=== PATIENT | female | born 1980 | race Hispanic/Latino ===

== ENCOUNTER 2023-09-08 08:27 | Outpatient (CLI) | payer SELFPAY ==
[2023-09-08 09:19] LABS: #Basophils 0.04 10x3/uL (0.0-0.2); #Eosinphils 0.13 10x3/uL (0.0-0.5); #Monocytes 0.41 10x3/uL (0.0-1.1); #Neutrophils 3.53 10x3/uL (1.5-8.4); %Basophils 0.7 % (0.0-2.0); %Eosinophils 2.3 % (0.0-6.0); %Lymphocytes 27.9 % (18.0-47.0); %Monocytes 7.1 % (0.0-10.0); %Neutrophils 61.5 % (40.0-75.0); Hematocrit 41.2 % (34.9-44.5); Hemoglobin 13.7 g/dL (12.0-15.5); Mean Corpuscular HGB CONC 33.3 g/dL (32.0-36.0); Mean Corpuscular Hemoglobin 30.4 pg (27.0-33.0); Mean Corpuscular Volume 91.6 fl (81.6-98.3); Mean Platelet Volume 11.9 fl (7.4-10.4); Platelet Count 223 10x3/uL (150-450); RBC Distribution Width 12.4 % (11.5-14.5); White Blood Cell (WBC) Count 5.7 10x3/uL (3.5-10.5)
[2023-09-08 09:51] LABS: BHCG - Serum Negative (NEGATIVE); Pregs Control Background? CLEAR/WHITE (CLR/WHITE); Pregs Control Bar Appear? YES (CONTROL BAR)
== END 2023-09-08 08:28 | disposition home or self-care (01) ==
LOC: LABBT 08:27
PROVIDERS: ATTEND Orthopaedic Surgery Hand Surgery
DX: Z01.812 Encounter for preprocedural laboratory examination (principal); M67.441 Ganglion, right hand
CPT/HCPCS: 84703; 85025

== ENCOUNTER 2023-09-15 10:13 | Day surgery (SDC) | payer SELFPAY ==
[2023-09-08 08:46] VITALS: BMI 22.3
[2023-09-15] MEDS ORDERED: Sodium Chloride 0.9% 100 ML ONE (13:15)
[2023-09-15] MEDS ORDERED: CEFAZOLIN 2 GM VIAL ONE (13:15)
[2023-09-15] MEDS ORDERED: Bupivacaine PF 0.5% 30 ML VIAL ONE (13:19)
[2023-09-15] MEDS ORDERED: Bacitracin Zinc Ointment 30 gm TUBE ONE (13:19)
[2023-09-15] MEDS ORDERED: fentaNYL PF 100 MCG/2 ML SYRINGE ONE (13:30)
[2023-09-15] MEDS ORDERED: PROPOFOL 80 ML ONE (13:30)
== END 2023-09-15 15:40 | disposition home or self-care (01) ==
LOC: SDC 10:13
PROVIDERS: ATTEND Orthopaedic Surgery Hand Surgery
PROC: 0LB70ZZ Excision of Right Hand Tendon, Open Approach (ICD-10-PCS; principal; 2023-09-15)
PROC: 01Q Peripheral Nervous System, Repair (ICD-10-PCS; 2023-09-15)
DX: M67.441 Ganglion, right hand (principal)
CPT/HCPCS: 88304; A6223; J0665; J2704; J3490